=== PATIENT | male | born 1935 | race Caucasian/White ===

== ENCOUNTER 2016-08-17 14:51 | Observation (INO) | payer MEDICARE, OTHER ==
[2016-08-17] MEDS ORDERED: Nitroglycerin 0.4 MG Tab.SL SL PRN ×2 (15:04→18:46)
[2016-08-17] MEDS ORDERED: Sodium Chloride 0.9% 10 ML Syringe FLUSH PRN ×2 (15:04→18:46)
[2016-08-17] MEDS ORDERED: Aspirin 81 MG Tab.Chew PO ONE (15:04)
[2016-08-17] MEDS ORDERED: Morphine 2 MG/ML Syringe IVPUSH PRN (15:04)
--- NOTE | 2016-08-17 15:14 | EDM.PDOC ---
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 For this particular event over the course of the week he has had chest pain on and off started on Friday with shortness of breath and diaphoresis no nausea has had spontaneous resolution this particular event started yesterday and has been progressing at this particular time he is chest pain-free has ongoing shortness of breath no diaphoresis or nausea - Related Data Allergies Allergy/AdvReac Type Severity Reaction Status Date / Time Unable to Assess Allergy Unverified 08/17/16 16:21 Home Meds: Home Meds Dabigatran [Pradaxa] 150 mg PO BID 08/17/16 [History] Digoxin 250 mcg PO DAILY 08/17/16 [History] Furosemide [Furosemide] 40 mg PO DAILY 08/17/16 [History] Isosorbide Mononitrate [Isosorbide Mononitrate ER] 60 mg PO DAILY 08/17/16 [ History] Memantine HCl [Memantine HCl] 10 mg PO BID 08/17/16 [History] Metoprolol Succinate [Toprol Xl] 100 mg PO BID 08/17/16 [History] Potassium Chloride 20 meq PO BID 08/17/16 [History] Propafenone HCl 225 mg PO BID 08/17/16 [History] Past Medical History Cardiovascular History: Reports: Bypass, CAD, Heart Failure, High Cholesterol, Hypertension, Stents Neurological History: Reports: CVA, TIA Social & Family History - Tobacco Use Smoking Status *Q: Former Smoker ED ROS GENERAL - Review of Systems Review Of Systems: See Below Constitutional: Reports: Weakness, Diaphoresis HEENT: Reports: No Symptoms Respiratory: Reports: Shortness of Breath Cardiovascular: Reports: Chest Pain, Dyspnea on Exertion GI/Abdominal: Reports: Nausea Musculoskeletal: Reports: No Symptoms Skin: Reports: No Symptoms Neurological: Reports: No Symptoms ED EXAM, GENERAL - Physical Exam Exam: See Below Free Text/Narrative:: General: Elderly gentleman, minimally responsive, alert denies any pain at this time HEENT: head is atraumatic normocephalic, eyes pupils equal round reactive to light, sclera clear no conjunctivitis appreciated. Ears tympanic membranes clear and martel landmarks and light reflex are present bilaterally canals are clear. Nose no septal deviation, nares are clear, no blood present. Mouth mucosa is moist and pink no erythema or exudate noted in soft palate, tongue is midline uvula is midline, dentures in place. Neck: Supple no thyromegaly no tracheal deviation. Nodes: Cervical nodes subclavicular nodes nontender no palpable lymphadenopathy noted. Lungs: clear to auscultation bilaterally with symmetrical respirations, no adventitious noise appreciated. CV: Regular rate and rhythm S1 and S2 appreciated no murmurs rubs or gallops noted. Abdomen: Soft, nontender, no palpable masses or organomegaly appreciated, no distention no guarding bowel sounds are present, zoster type Neruro: Cranial nerves II through XII grossly intact Skin: rash appreciated on left side dermatome L2 Extremities: No lower extremity edema appreciated, Course - Vital Signs Last Recorded V/S: Last Vital Signs Temp 96.2 F 08/17/16 15:12 Pulse 63 08/17/16 15:21 Resp 18 08/17/16 15:21 BP 137/78 08/17/16 15:21 Pulse Ox 95 08/17/16 15:21 - Orders/Labs/Meds Orders: Active Orders 24 hr Category Date Time Status Cardiac Monitoring [RC] .As Directed Care 08/17/16 15:04 Active EKG Documentation Completion [RC] ASDIRECTED Care 08/17/16 15:07 Active Peripheral IV Care [RC] . DIRECTED Care 08/17/16 15:07 Active Chest 1V Frontal [CR] Stat Exams 08/17/16 15:07 Taken Morphine Med 08/17/16 15:04 Active 2 mg IVPUSH Q10M PRN Nitroglycerin [Nitrostat] Med 08/17/16 15:04 Active 0.4 mg SL Q5M PRN Sodium Chloride 0.9% [Saline Flush] Med 08/17/16 15:04 Active 10 ml FLUSH ASDIRECTED PRN Peripheral IV Insertion Adult [OM.PC] Stat Oth 08/17/16 15:04 Ordered Saline Lock Insert [OM.PC] Stat Oth 08/17/16 15:04 Ordered EKG 12 Lead [EK] Stat Ther 08/17/16 15:07 Ordered Medication Orders Morphine Sulfate (Morphine) 2 mg IVPUSH Q10M PRN PRN Reason: Chest Pain Stop: 08/18/16 15:06 Nitroglycerin (Nitrostat) 0.4 mg SL Q5M PRN PRN Reason: Chest Pain Stop: 08/18/16 15:06 Sodium Chloride (Saline Flush) 10 ml FLUSH ASDIRECTED PRN PRN Reason: Keep Vein Open Last Admin: 08/17/16 15:25 Dose: 10 ml Labs: Laboratory Tests 08/17/16 08/17/16 08/17/16 Range/Units 15:17 15:17 15:17 WBC 5.9 (4.5-11.0) K/uL RBC 4.35 (4.30-5.90) M/uL Hgb 14.1 (12.0-15.0) g/dL Hct 41.7 (40.0-54.0) % MCV 96 (80-98) fL MCH 32 H (27-31) pg MCHC 34 (32-36) % Plt Count 229 (150-400) K/uL Neut % (Auto) 63 (36-66) % Lymph % (Auto) 23 L (24-44) % [place] % (Auto) 12 H (2-6) % Eos % (Auto) 1 L (2-4) % Baso % (Auto) 1 (0-1) % PT 11.1 (9.5-12.0) sec INR 1.04 (0.80-1.20) APTT 34.1 (27.0-36.0) sec Sodium 142 (140-148) mmol/L Potassium 4.0 (3.6-5.2) mmol/L Chloride 106 (100-108) mmol/L Carbon Dioxide 26 (21-32) mmol/L Anion Gap 10.1 (5.0-14.0) mmol/L BUN 16 (7-18) mg/dL Creatinine 1.1 (0.8-1.3) mg/dL Est Cr Clr Drug Dosing 59.39 mL/min Estimated GFR (MDRD) > 60 (>60) Glucose 132 H (74-106) mg/dL Calcium 8.3 L (8.5-10.1) mg/dL Total Bilirubin 0.5 (0.2-1.0) mg/dL AST 20 (15-37) U/L ALT 26 (12-78) U/L Alkaline Phosphatase 86 (46-116) U/L CK-MB (CK-2) 0.4 (0-3.6) mg/mL Troponin I < 0.017 (0.000-0.056) ng/mL Rfm-T-Hjamneplccl Pept (5-450) pg/mL Total Protein 6.9 (6.4-8.2) g/dL Albumin 3.6 (3.4-5.0) g/dL Globulin 3.3 (2.3-3.5) g/dL Albumin/Globulin Ratio 1.1 L (1.2-2.2) // Range/Units 16:11 WBC (4.5-11.0) K/uL RBC (4.30-5.90) M/uL Hgb (12.0-15.0) g/dL Hct (40.0-54.0) % MCV (80-98) fL MCH (27-31) pg MCHC (32-36) % Plt Count (150-400) K/uL Neut % (Auto) (36-66) % Lymph % (Auto) (24-44) % [place] % (Auto) (2-6) % Eos % (Auto) (2-4) % Baso % (Auto) (0-1) % PT (9.5-12.0) sec INR (0.80-1.20) APTT (27.0-36.0) sec Sodium (140-148) mmol/L Potassium (3.6-5.2) mmol/L Chloride (100-108) mmol/L Carbon Dioxide (21-32) mmol/L Anion Gap (5.0-14.0) mmol/L BUN (7-18) mg/dL Creatinine (0.8-1.3) mg/dL Est Cr Clr Drug Dosing mL/min Estimated GFR (MDRD) (>60) Glucose (74-106) mg/dL Calcium (8.5-10.1) mg/dL Total Bilirubin (0.2-1.0) mg/dL AST (15-37) U/L ALT (12-78) U/L Alkaline Phosphatase (46-116) U/L CK-MB (CK-2) (0-3.6) mg/mL Troponin I (0.000-0.056) ng/mL Xnf-V-Ixfnqluwyko Pept 123 (5-450) pg/mL Total Protein (6.4-8.2) g/dL Albumin (3.4-5.0) g/dL Globulin (2.3-3.5) g/dL Albumin/Globulin Ratio (1.2-2.2) Meds: Medications Generic Name Dose Route Start Last Admin Trade Name Freq PRN Reason Stop Dose Admin Morphine Sulfate 2 mg 08/17/16 15:04 Morphine IVPUSH 08/18/16 15:06 Q10M PRN Chest Pain Nitroglycerin 0.4 mg 08/17/16 15:04 Nitrostat SL 08/18/16 15:06 Q5M PRN Chest Pain Sodium Chloride 10 ml 08/17/16 15:04 08/17/16 15:25 Saline Flush FLUSH 10 ml ASDIRECTED PRN Administration Keep Vein Open Discontinued Medications Generic Name Dose Route Start Last Admin Trade Name Freq PRN Reason Stop Dose Admin Aspirin 324 mg 08/17/16 15:04 08/17/16 15:24 Aspirin PO 08/17/16 15:05 324 mg ONETIME ONE Administration Departure - Departure Time of Disposition: 16:39 Disposition: Admitted As Inpatient 67 Condition: Poor Clinical Impression: Chest pain Qualifiers: Chest pain type: unspecified Qualified Code(s): R07.9 - Chest pain, unspecified Shingles Qualifiers: Herpes zoster complications: without complications Qualified Code(s): B02.9 - Zoster without complications - Discharge Information Forms: ED Department Discharge - My Orders Last 24 Hours: My Active Orders 08/17/16 15:04 Cardiac Monitoring [RC] .As Directed Morphine 2 mg IVPUSH Q10M PRN Nitroglycerin [Nitrostat] 0.4 mg SL Q5M PRN Sodium Chloride 0.9% [Saline Flush] 10 ml FLUSH ASDIRECTED PRN Peripheral IV Insertion Adult [OM.PC] Stat Saline Lock Insert [OM.PC] Stat 08/17/16 15:07 EKG Documentation Completion [RC] ASDIRECTED Peripheral IV Care [RC] . DIRECTED Chest 1V Frontal [CR] Stat EKG 12 Lead [EK] Stat - Assessment/Plan Last 24 Hours: My Active Orders 08/17/16 15:04 Cardiac Monitoring [RC] .As Directed Morphine 2 mg IVPUSH Q10M PRN Nitroglycerin [Nitrostat] 0.4 mg SL Q5M PRN Sodium Chloride 0.9% [Saline Flush] 10 ml FLUSH ASDIRECTED PRN Peripheral IV Insertion Adult [OM.PC] Stat Saline Lock Insert [OM.PC] Stat 08/17/16 15:07 EKG Documentation Completion [RC] ASDIRECTED Peripheral IV Care [RC] . DIRECTED Chest 1V Frontal [CR] Stat EKG 12 Lead [EK] Stat Plan: Assessment Acuity = acute Site and laterality = chest discomfort with shortness of breath shingles exacerbation L1 region complicated patient with his 3 of vascular pathology including coronary artery disease and TIA as well as Alzheimer's dementia Etiology = unclear etiology Manifestations = none Location of injury = home Lab values = CBC negative INR 1.04 troponin is negative BNP is pending chest x- ray I did review films myself I cannot appreciate any acute process, the official read from radiology is pending EKG demonstrates right bundle branch block on appreciate any significant ST changes Plan Called discussed case with hospitalist director of food and nutrition he agreed to come and evaluate the patient in the ED for admission, family states he is a DNR Patient was in agreement with the plan all questions were answered, they were instructed to return to the emergency department or call for worsening symptoms. This note was dictated using [employer] voice recognition software please call with any questions.
--- NOTE | 2016-08-17 18:25 | PCM.HP ---
H&P History of Present Illness - General Date of Service: 08/17/16 Admit Problem/Dx: Source of Information: Family, Provider, RN Notes Reviewed History Limitations: Reports: Altered Mental Status (Dementia) - History of Present Illness Initial Comments - Free Text/Narative: Mr. Paul is a 80-year-old gentleman was admitted to observation status for further evaluation and management of chest pain as well as herpes zoster. He has a known history of coronary artery disease and is status post previous bypass surgery as well as angioplasty and stent placement. He been followed by cardiology at the [facility] in [place] and has been told that he is not a candidate for any further intervention. He's been managed medically but now over the past 4 days has been telling his that he is experiencing symptoms of chest pain and has been taking nitroglycerin. He has significant dementia and is unable to provide any meaningful history concerning recent symptoms or events. Evaluation in emergency department today is also been noted to have shingles, area of involvement is in the left back and chest. last saw his chest last night and did not note any outbreak or rash at that time. Initial EKG shows no acute ST segment changes and initial troponin level is within normal range. Patient currently denies symptoms of chest pain. - Related Data Allergies/Adverse Reactions: Allergies Allergy/AdvReac Type Severity Reaction Status Date / Time Unable to Assess Allergy Unverified 08/17/16 16:21 Home Medications: Home Meds Dabigatran [Pradaxa] 150 mg PO BID 08/17/16 [History] Digoxin 250 mcg PO DAILY 08/17/16 [History] Furosemide [Furosemide] 40 mg PO DAILY 08/17/16 [History] Isosorbide Mononitrate [Isosorbide Mononitrate ER] 60 mg PO DAILY 08/17/16 [ History] Memantine HCl [Memantine HCl] 10 mg PO BID 08/17/16 [History] Metoprolol Succinate [Toprol Xl] 100 mg PO BID 08/17/16 [History] Potassium Chloride 20 meq PO BID 08/17/16 [History] Propafenone HCl 225 mg PO BID 08/17/16 [History] Past Medical History HEENT History: Reports: Hard of Hearing, Impaired Vision, Macular Degeneration Cardiovascular History: Reports: Bypass, CAD, Heart Failure, High Cholesterol, Hypertension, Stents Respiratory History: Reports: Asthma Gastrointestinal History: Reports: PUD Genitourinary History: Reports: Urinary Incontinence Musculoskeletal History: Reports: Fracture Neurological History: Reports: CVA, TIA - Infectious Disease History Infectious Disease History: Reports: Chicken Pox, Measles, Mumps - Past Surgical History HEENT Surgical History: Reports: Cataract Surgery, Tonsillectomy Cardiovascular Surgical History: Reports: Coronary Artery Bypass GI Surgical History: Reports: Appendectomy, Other (See Below) Other GI Surgeries/Procedures: "surgery to take out half his stomach for ulcers " Social & Family History - Tobacco Use Smoking Status *Q: Former Smoker - Recreational Drug Use Recreational Drug Use: No H&P Review of Systems - Review of Systems: Review Of Systems: Unable To Obtain General: Reports: ROS unobtainable (Significant dementia) Exam - Exam Exam: See Below - Vital Signs Vital Signs: Last Vital Signs Temp 96.2 F 08/17/16 15:12 Pulse 55 L 08/17/16 17:20 Resp 18 08/17/16 15:21 BP 133/80 08/17/16 17:20 Pulse Ox 94 L 08/17/16 17:20 Weight: 170 lb - Exam Quality Assessment: DVT Prophylaxis General: Alert, Cooperative HEENT: Conjunctiva Clear, Hearing Intact, Mucosa Moist & [place], Nares Patent, Normal Nasal Septum, Posterior Pharynx Clear, Pupils Equal Neck: Supple, Trachea Midline, +2 Carotid Pulse wo Bruit Lungs: Clear to Auscultation, Normal Respiratory Effort Cardiovascular: Regular Rate, Regular Rhythm, Normal S1, Normal S2. No: Irregular Rhythm, Bradycardia, Tachycardia, Systolic Murmur, Diastolic Murmur Abdomen: Normal Bowel Sounds, Soft Back Exam: Normal Inspection, Full Range of Motion, NT Extremities: 3, Normal Inspection, 10 Skin: Warm, Dry, Intact Neurological: Cranial Nerves Intact, Strength Equal Bilateral, Normal Speech, Normal Tone, Sensation Intact. No: Focal Deficit Neuro Extensive - Mental Status: Alert, Normal Mood/Affect, Disorientation to Place, Disorientation to Time, Memory Loss-Remote Events, Memory Loss-Recent Events, Nl Response to Commands. No: Normal Cognition, Memory Intact, Disorientation to Person - Patient Data Lab Results Last 24 hrs: Laboratory Results - last 24 hr 08/17/16 08/17/16 08/17/16 Range/Units 15:17 15:17 15:17 WBC 5.9 (4.5-11.0) K/uL RBC 4.35 (4.30-5.90) M/uL Hgb 14.1 (12.0-15.0) g/dL Hct 41.7 (40.0-54.0) % MCV 96 (80-98) fL MCH 32 H (27-31) pg MCHC 34 (32-36) % Plt Count 229 (150-400) K/uL Neut % (Auto) 63 (36-66) % Lymph % (Auto) 23 L (24-44) % [place] % (Auto) 12 H (2-6) % Eos % (Auto) 1 L (2-4) % Baso % (Auto) 1 (0-1) % PT 11.1 (9.5-12.0) sec INR 1.04 (0.80-1.20) APTT 34.1 (27.0-36.0) sec Sodium 142 (140-148) mmol/L Potassium 4.0 (3.6-5.2) mmol/L Chloride 106 (100-108) mmol/L Carbon Dioxide 26 (21-32) mmol/L Anion Gap 10.1 (5.0-14.0) mmol/L BUN 16 (7-18) mg/dL Creatinine 1.1 (0.8-1.3) mg/dL Est Cr Clr Drug Dosing 59.39 mL/min Estimated GFR (MDRD) > 60 (>60) Glucose 132 H (74-106) mg/dL Calcium 8.3 L (8.5-10.1) mg/dL Total Bilirubin 0.5 (0.2-1.0) mg/dL AST 20 (15-37) U/L ALT 26 (12-78) U/L Alkaline Phosphatase 86 (46-116) U/L CK-MB (CK-2) 0.4 (0-3.6) mg/mL Troponin I < 0.017 (0.000-0.056) ng/mL Lxo-R-Gjarvnhgsgd Pept (5-450) pg/mL Total Protein 6.9 (6.4-8.2) g/dL Albumin 3.6 (3.4-5.0) g/dL Globulin 3.3 (2.3-3.5) g/dL Albumin/Globulin Ratio 1.1 L (1.2-2.2) 08/17/16 Range/Units 16:11 WBC (4.5-11.0) K/uL RBC (4.30-5.90) M/uL Hgb (12.0-15.0) g/dL Hct (40.0-54.0) % MCV (80-98) fL MCH (27-31) pg MCHC (32-36) % Plt Count (150-400) K/uL Neut % (Auto) (36-66) % Lymph % (Auto) (24-44) % [place] % (Auto) (2-6) % Eos % (Auto) (2-4) % Baso % (Auto) (0-1) % PT (9.5-12.0) sec INR (0.80-1.20) APTT (27.0-36.0) sec Sodium (140-148) mmol/L Potassium (3.6-5.2) mmol/L Chloride (100-108) mmol/L Carbon Dioxide (21-32) mmol/L Anion Gap (5.0-14.0) mmol/L BUN (7-18) mg/dL Creatinine (0.8-1.3) mg/dL Est Cr Clr Drug Dosing mL/min Estimated GFR (MDRD) (>60) Glucose (74-106) mg/dL Calcium (8.5-10.1) mg/dL Total Bilirubin (0.2-1.0) mg/dL AST (15-37) U/L ALT (12-78) U/L Alkaline Phosphatase (46-116) U/L CK-MB (CK-2) (0-3.6) mg/mL Troponin I (0.000-0.056) ng/mL Slz-G-Zjtljueydyu Pept 123 (5-450) pg/mL Total Protein (6.4-8.2) g/dL Albumin (3.4-5.0) g/dL Globulin (2.3-3.5) g/dL Albumin/Globulin Ratio (1.2-2.2) Result Diagrams: 08/17/16 15:17 08/17/16 15:17 *Q Meaningful Use (ADM) - VTE *Q VTE Criteria *Q: VTE Pharmacological Contraindications *Q: High INR Value - VTE Risk Assess *Q Each Risk Factor Represents 1 Point: None Total Score 1 Point Risk Factors: 0 Each Risk Factor Represents 2 Points: None Total Score 2 Point Risk Factors: 0 Each Risk Factor Represents 3 Points: Age 75 Years or Greater Total Score 3 Point Risk Factors: 3 Each Risk Factor Represents 5 Points: None Total Score 5 Point Risk Factors: 0 Venous Thromboembolism Risk Factor Score *Q: 3 - Stroke *Q Stroke Criteria *Q: - AMI *Q AMI Criteria *Q: Problem List Initiated/Reviewed/Updated: Yes Orders Last 24hrs: Active Orders 24 hr Category Date Time Status Patient Status Manage Transfer [TRANSFER] Routine ADT 08/17/16 17:50 Ordered Cardiac Monitoring [RC] .As Directed Care 08/17/16 15:04 Active Cardiac Monitoring [RC] .As Directed Care 08/17/16 17:50 Ordered EKG Documentation Completion [RC] ASDIRECTED Care 08/17/16 15:07 Active Peripheral IV Care [RC] . DIRECTED Care 08/17/16 15:07 Active Chest 1V Frontal [CR] Stat Exams 08/17/16 15:07 Taken Morphine Med 08/17/16 15:04 Active 2 mg IVPUSH Q10M PRN Nitroglycerin [Nitrostat] Med 08/17/16 15:04 Active 0.4 mg SL Q5M PRN Sodium Chloride 0.9% [Saline Flush] Med 08/17/16 15:04 Active 10 ml FLUSH ASDIRECTED PRN Peripheral IV Insertion Adult [OM.PC] Stat Oth 08/17/16 15:04 Ordered Saline Lock Insert [OM.PC] Stat Oth 08/17/16 15:04 Ordered Resuscitation Status Routine Resus Stat 08/17/16 17:53 Ordered EKG 12 Lead [EK] Stat Ther 08/17/16 15:07 Ordered Medication Orders Morphine Sulfate (Morphine) 2 mg IVPUSH Q10M PRN PRN Reason: Chest Pain Stop: 08/18/16 15:06 Nitroglycerin (Nitrostat) 0.4 mg SL Q5M PRN PRN Reason: Chest Pain Stop: 08/18/16 15:06 Sodium Chloride (Saline Flush) 10 ml FLUSH ASDIRECTED PRN PRN Reason: Keep Vein Open Last Admin: 08/17/16 15:25 Dose: 10 ml Assessment/Plan Comment:: ASSESSMENT AND PLAN CHEST PAIN-neither patient nor are able to give me more specific details concerning these symptoms including type of pain, precipitating factors, location of pain or any other information. Question as to whether some of his chest pain is related to recently noted outbreak of shingles. Initial troponin and EKG obtained in the emergency department are unremarkable. Patient does have a normal outbreak of shingles involving the left back and chest which may be contributing to his current symptoms of pain. At the present time patient reports that he is pain-free. He does have a known history of coronary artery disease but has been told that he is not a candidate for any further intervention -Serial troponin levels -IV fluids for hydration -Sublingual nitroglycerin and/or morphine as needed for recurrent pain HERPES ZOSTER INVOLVING THE LEFT CHEST-by history from his these are of recent onset likely within the last 24 hours. -Pain medication as needed -Valacyclovir 1000 mg by mouth 3 times daily. PAROXYSMAL ATRIAL FIBRILLATION-no current evidence of atrial fibrillation, on suppressive therapy with prophopanone, and anticoagulation with Pradaxa -Continue outpatient medical therapy MAINTENANCE ISSUES -DVT prophylaxis; current therapy with Pradaxa should provide adequate DVT prophylaxis -GI prophylaxis; not indicated -[place] catheter; not indicated -Nutrition; 2 g sodium diet -Nicotinic dependence; not required DNR/DNI CODE STATUS- ADMISSION STATUS-this patient will be admitted to observation status, expect no more than a one night hospital stay for evaluation and management of problems as outlined above. DISPOSITION-anticipate discharge to home after the hospital stay. PRIMARY CARE PROVIDER-patient receives primary care in [place]
[2016-08-17] MEDS ORDERED: oxyCODONE 5 MG Tab PO PRN (18:46)
[2016-08-17] MEDS ORDERED: Docusate Sodium 100 MG Cap PO PRN (18:46)
[2016-08-17] MEDS ORDERED: Morphine 4 MG/ML Syringe IVPUSH PRN (18:46)
[2016-08-17] MEDS ORDERED: Acetaminophen 325 MG Tab PO PRN (18:46)
[2016-08-17] MEDS ORDERED: Magnesium Hydroxide 400 MG/5 ML Susp 30 ML Cup PO PRN (18:46)
[2016-08-17] MEDS ORDERED: Pantoprazole 40 MG Tab.CR PO SCH (18:46)
[2016-08-17] MEDS ORDERED: Ondansetron 4 MG/2 ML SDV IV PRN (18:46)
[2016-08-17] MEDS ORDERED: Polyethylene Glycol 3350 Powder 17 GM Packet PO PRN (18:46)
[2016-08-17] MEDS: Sodium Chloride 0.9% 1,000 ML IV SCH (19:49)
[2016-08-17] MEDS ORDERED: Dabigatran 75 MG Cap PO SCH (21:00)
[2016-08-17] MEDS ORDERED: Metoprolol Succinate 50 MG Tab.ER PO SCH (21:00)
[2016-08-17] MEDS ORDERED: Melatonin 3 MG Tab PO SCH (21:00)
[2016-08-17] MEDS: valACYclovir 1,000 MG Tab PO SCH (21:28)
[2016-08-17] MEDS: Memantine 10 MG Tab PO SCH (21:30)
[2016-08-18] MEDS: Sodium Chloride 0.9% 1,000 ML IV SCH (03:17)
[2016-08-18] MEDS ORDERED: Potassium Chloride 20 MEQ Tab.ER PO SCH (08:00)
[2016-08-18] MEDS ORDERED: Isosorbide Mononitrate 30 MG Tab.ER PO SCH (09:00)
[2016-08-18] MEDS ORDERED: Digoxin 125 MCG Tab PO SCH (09:00)
[2016-08-18] MEDS ORDERED: Aspirin 81 MG Tab.Chew PO SCH (09:00)
[2016-08-18] MEDS ORDERED: Metoprolol Succinate 50 MG Tab.ER PO SCH (09:00)
[2016-08-18] MEDS ORDERED: Furosemide 20 MG Tab PO SCH (09:00)
[2016-08-18] MEDS ORDERED: Furosemide 40 MG Tab PO SCH (09:00)
[2016-08-18] MEDS ORDERED: Pantoprazole 40 MG Tab.CR PO SCH (09:00)
[2016-08-18] MEDS: Memantine 10 MG Tab PO SCH (09:22)
[2016-08-18] MEDS: valACYclovir 1,000 MG Tab PO SCH (09:37)
[2016-08-18 10:33] VITALS: BP 113/68
--- NOTE | 2016-08-18 11:05 | PCM.DCSUM1 ---
Discharge Summary - Hospital Course Brief History: This patient is a 80-year-old gentleman who was admitted through the emergency department for further evaluation and management of chest pain and herpes zoster. - Discharge Data Discharge Date: 08/18/16 Discharge Disposition: Home, Self-Care 01 Condition: Fair - Discharge Diagnosis/Problem(s) (1) Shingles SNOMED Code(s): 8330322 ICD Code: B02.9 - ZOSTER WITHOUT COMPLICATIONS Status: Acute Current Visit: Yes Qualifiers: Herpes zoster complications: without complications Qualified Code(s): B02.9 - Zoster without complications (2) Chest pain SNOMED Code(s): 82004214 ICD Code: R07.9 - CHEST PAIN, UNSPECIFIED Status: Acute Current Visit: Yes Qualifiers: Chest pain type: unspecified Qualified Code(s): R07.9 - Chest pain, unspecified - Patient Summary/Data Hospital Course: Mr. Paul is a 80-year-old gentleman who is admitted to observation status through the emergency department for further evaluation and management of chest pain as well as herpes zoster. He has a known history of severe coronary artery disease, which is felt to be not amenable to further intervention. He has been treated medically and did well until approximately 3 days prior to admission when he began to develop symptoms of chest pain. Unfortunately the patient has dementia and is unable to give further specific information concerning the nature of his chest pain. His is not able to provide further information as well. On evaluation in emergency department initial EKG and troponin level were unremarkable. He was found to have a rash on the left chest consistent with herpes zoster. His reports that that was new within the past 24 hours. He was admitted to the hospital on observation status, serial troponin levels were normal showing no evidence of myocardial infarction. He was started on oral antiviral therapy with valacyclovir 1000 mg by mouth 3 times a day. Serial troponin levels were within normal range and he was feeling fairly well the following morning. He will be discharged to home on oral valacyclovir thousand milligrams 3 times a day for 7 days. He was noted to have significant bradycardia during hospital stay and for this reason his digoxin will be discontinued at the time of discharge. Activity will be as tolerated and he will resume his usual diet. In addition to the valacyclovir he will be treated with oxycodone 5 mg every 4 hours as needed for pain. Follow-up appointment should be scheduled with his primary care provider within one week. - Patient Instructions Diet: Heart Healthy Diet Activity: As Tolerated Other/Special Instructions: Please schedule follow-up appointment with primary care provider within 1 week. - Discharge Plan Prescriptions/Med Rec: oxyCODONE 5 mg PO Q4H PRN #20 tab PRN Reason: Pain valACYclovir [Valtrex] 1,000 mg PO TID #19 tablet Home Medications: Home Meds Dabigatran [Pradaxa] 150 mg PO BID 08/17/16 [History] Furosemide 40 mg PO DAILY 08/17/16 [History] Isosorbide Mononitrate [Isosorbide Mononitrate ER] 60 mg PO DAILY 08/17/16 [ History] Memantine HCl 10 mg PO BID 08/17/16 [History] Metoprolol Succinate [Toprol Xl] 100 mg PO BID 08/17/16 [History] Potassium Chloride 20 meq PO BID 08/17/16 [History] Propafenone HCl 225 mg PO BID 08/17/16 [History] oxyCODONE 5 mg PO Q4H PRN #20 tab 08/18/16 [Rx] valACYclovir [Valtrex] 1,000 mg PO TID #19 tablet 08/18/16 [Rx] Referrals: PCP,None [Primary Care Provider] - - Patient Data Vitals - Most Recent: Last Vital Signs Temp 97.9 F 08/18/16 08:00 Pulse 60 08/18/16 10:00 Resp 19 08/18/16 10:00 BP 113/68 08/18/16 10:00 Pulse Ox 95 08/18/16 10:00 Weight - Most Recent: 170 lb I&O - Last 24 hours: Intake & Output 08/17/16 08/18/16 08/18/16 22:59 06:59 14:59 Intake Total 1374 Output Total 300 Balance 1074 Lab Results - Last 24 hrs: Laboratory Results - last 24 hr 08/17/16 08/18/16 08/18/16 Range/Units 20:49 04:25 04:25 Troponin I < 0.017 < 0.017 (0.000-0.056) ng/mL Digoxin 1.07 (0.90-2.00) ng/mL Med Orders - Current: Current Medications Acetaminophen (Tylenol) 650 mg PO Q4H PRN PRN Reason: Pain (Mild 1-3)/fever Aspirin (Aspirin) [address] [facility] Last Admin: 08/18/16 09:37 Dose: 81 mg Dabigatran (Pradaxa) [address] [facility] Last Admin: 08/17/16 21:32 Dose: 150 mg Digoxin (Lanoxin) [address] [facility] Docusate Sodium (Colace) 100 mg PO BID PRN PRN Reason: Constipation Furosemide (Lasix) [address] [facility] Sodium Chloride (Normal Saline) 1,000 mls @ 125 mls/hr IV ASDIRECTED [facility] Last Admin: 08/18/16 03:17 Dose: 125 mls/hr Isosorbide Mononitrate (Imdur) [address] [facility] Magnesium Hydroxide (Milk Of Magnesia) 30 ml PO Q12H PRN PRN Reason: Constipation Melatonin (Melatonin) [address] [facility] Last Admin: 08/17/16 21:28 Dose: 9 mg Memantine (Namenda) [address] [facility] Last Admin: 08/18/16 09:22 Dose: 10 mg Metoprolol Succinate (Toprol Xl) [address] [facility] Morphine Sulfate (Morphine) 4 mg IVPUSH Q10M PRN PRN Reason: Chest Pain Stop: 08/18/16 17:57 Nitroglycerin (Nitrostat) 0.4 mg SL Q5M PRN PRN Reason: Chest Pain Stop: 08/18/16 17:56 Ondansetron HCl (Zofran) 4 mg IV Q4H PRN PRN Reason: Nausea/Vomiting Oxycodone HCl (Oxycodone) 5 mg PO Q4H PRN PRN Reason: Pain (moderate 4-6) Pantoprazole Sodium (Protonix) [address] [facility] Last Admin: 08/18/16 09:21 Dose: 40 mg Polyethylene Glycol (Miralax) 17 gm PO DAILY PRN PRN Reason: Constipation Potassium Chloride (Klor-Con M20) [address] [facility] Last Admin: 08/18/16 08:45 Dose: 20 meq Propafenone HCl (Rythmol) [address] [facility] Last Admin: 08/17/16 21:29 Dose: 225 mg Sodium Chloride (Saline Flush) 10 ml FLUSH ASDIRECTED PRN PRN Reason: Keep Vein Open Valacyclovir HCl (Valtrex) 1,[address] [facility] Last Admin: 08/18/16 09:37 Dose: 1,000 mg Discontinued Medications Aspirin (Aspirin) 324 mg PO ONETIME ONE Stop: 08/17/16 15:05 Last Admin: 08/17/16 15:24 Dose: 324 mg Furosemide (Lasix) [address] [facility] Metoprolol Succinate (Toprol Xl) [address] [facility] Stop: 08/18/16 08:00 Morphine Sulfate (Morphine) 2 mg IVPUSH Q10M PRN PRN Reason: Chest Pain Stop: 08/18/16 15:06 Nitroglycerin (Nitrostat) 0.4 mg SL Q5M PRN PRN Reason: Chest Pain Stop: 08/18/16 15:06 Pantoprazole Sodium (Protonix) [address] [facility] Last Admin: 08/17/16 21:28 Dose: 40 mg Sodium Chloride (Saline Flush) 10 ml FLUSH ASDIRECTED PRN PRN Reason: Keep Vein Open Last Admin: 08/17/16 15:25 Dose: 10 ml *Q Meaningful Use (DIS) - VTE *Q VTE Criteria *Q: VTE Pharmacological Contraindications *Q: High INR Value - Stroke *Q Stroke Criteria *Q: - AMI *Q AMI Criteria *Q:
--- NOTE | 2016-08-19 08:30 | CR ---
Chest 1V Frontal HISTORY: Chest Pain COMPARISON: 12/26/2008 FINDINGS: Portable chest, 1528 hours. Lungs appear clear and normally aerated. Cardiomediastinal silhouette is within normal limits for th e AP technique. Old median sternotomy changes are noted. No vascular redistribution or pleural fluid can be seen. Bony structures and soft tissues are unremarkable. IMPRESSION: No acute chest abnormality identified or significant interval change is.
== END 2016-08-18 11:23 | disposition home or self-care (01) ==
LOC: JP.ED 14:51 → JP.ICU 17:50
PROVIDERS: ADMIT Hospitalist; ATTEND Hospitalist
DX: R07.9 Chest pain, unspecified (principal); B02.9 Zoster without complications; R00.1 Bradycardia, unspecified; I25.810 Atherosclerosis of coronary artery bypass graft(s) without angina pectoris; I11.0 Hypertensive heart disease with heart failure; Z95.5 Presence of coronary angioplasty implant and graft; F03.90 Unspecified dementia, unspecified severity, without behavioral disturbance, psychotic disturbance, mood disturbance, and anxiety; E78.00 Pure hypercholesterolemia, unspecified; J45.909 Unspecified asthma, uncomplicated; Z86.73 Personal history of transient ischemic attack (TIA), and cerebral infarction without residual deficits; Z79.01 Long term (current) use of anticoagulants; Z79.899 Other long term (current) drug therapy
CPT/HCPCS: 36415; 71010; 80053; 80162; 82553; 83880; 84484; 85025; 85610; 85730; 93005; 96360; 96361; 99217; 99219; 99285; A9270; G0378; J7040; J7050; 93010; 96365; 96366

== ENCOUNTER 2021-09-26 18:55 | Emergency (ER) | payer MEDICARE, OTHER ==
[2021-09-26 20:15] LABS: ESTIMATED GFR 54 mL/min (>60)
[2021-09-26 21:12] VITALS: BP 113/66; PULSE 64
== END 2021-09-26 21:25 | disposition home or self-care (01) ==
LOC: JP.ED 18:55
DX: U07.1 COVID-19 (principal); I25.10 Atherosclerotic heart disease of native coronary artery without angina pectoris; I11.0 Hypertensive heart disease with heart failure; I50.9 Heart failure, unspecified; E78.00 Pure hypercholesterolemia, unspecified; Z86.73 Personal history of transient ischemic attack (TIA), and cerebral infarction without residual deficits; Z88.8 Allergy status to other drugs, medicaments and biological substances; Z95.1 Presence of aortocoronary bypass graft; Z79.01 Long term (current) use of anticoagulants; Z79.899 Other long term (current) drug therapy
CPT/HCPCS: 36415; 71045; 80053; 82728; 83605; 83615; 84145; 85025; 85379; 99284; U0002; 99281